=== PATIENT | female | born 1995 | race Caucasian/White ===

== ENCOUNTER 2017-01-21 10:41 | Emergency (ER) | payer BC, OTHER ==
[~2017-01-21] VITALS: Ht 157.5 cm; Wt 63.5 kg
[2017-01-21] MEDS ORDERED: IV NORMAL SALINE 1000 ML BAG IV ONE (11:15)
[2017-01-21] MEDS ORDERED: ESTR0.5T PO (11:21)
--- NOTE | 2017-01-21 11:28 | NUR ---
SALINE LOCK PLACED/ LABS DRAWN-SENT, 1L 0.9NS BOLUS INFUSING, EKG DONE. MONITOR SHOWS NSR, PT POSITIONED FOR COMFORT.
[2017-01-21 11:31] LABS: BASOPHILS % (AUTO) 0.7 % (0.0-2.0); EOSINOPHILS # (AUTO) 0.1 K/uL (0.0-0.7); EOSINOPHILS % (AUTO) 1.8 % (0.0-7.0); HEMATOCRIT 39.9 % (37-47); HEMOGLOBIN 13.3 G/DL (12.0-16.0); LYMPHOCYTES # (AUTO) 1.5 K/UL (0.8-4.8); LYMPHOCYTES % (AUTO) 26.7 % (20.5-74.5); MEAN CORPUSCULAR HEMOGLOBIN 29.1 UUG (27.0-31.0); MEAN CORPUSCULAR HGB CONC 33 g/dL (32.0-37.0); MONOCYTES # (AUTO) 0.5 K/UL (0.1-1.30); MONOCYTES % (AUTO) 8.1 % (0-11); NEUTROPHILS # (AUTO) 3.6 K/UL (1.8-8.9); NEUTROPHILS % (AUTO) 62.7 % (31.5-64.5); PLATELET COUNT (AUTO) 171 K/UL (150-450); RED BLOOD CELL COUNT(AUTO) 4.59 MIL/UL (4.2-5.4); WHITE BLOOD COUNT (AUTO) 5.7 K/UL (4.0-11.2)
[2017-01-21 11:35] LABS: CREATININE 0.9 mg/dL (0.6-1.3); POTASSIUM 3.6 mmol/L (3.5-5.1)
[2017-01-21 11:41] LABS: BILIRUBIN,DIRECT 0.1 mg/dL (0.0-0.2); BILIRUBIN,TOTAL 0.4 mg/dL (0.2-1.0); TOTAL PROTEIN, SERUM 7.8 g/dL (6.4-8.2)
--- NOTE | 2017-01-21 12:03 | NUR ---
MSE COMPLETED, SALINE LOCK D/C'D INTACT. 1L 0.9NS INFUSED. PT D/C'D HOME, ACI GIVEN. PT GOT DRESSED AND AMBULATED W/O DIFF.
[2017-01-21 12:07] VITALS: BP 120/83
== END 2017-01-21 12:08 | disposition home or self-care (01) ==
LOC: ER 10:41
DX: R55 Syncope and collapse (principal)
CPT/HCPCS: 36415; 80048; 80076; 84703; 85025; 93005; 96360; 99285; A4663; J7030

== ENCOUNTER 2018-04-20 18:24 | Emergency (ER) | payer BC, OTHER ==
[~2018-04-20] VITALS: Ht 157.5 cm; Wt 59.9 kg
[~2018-04-20 18:24] MED LIST: ESTR0.5T PO
[2018-04-20] MEDS ORDERED: IBUPROFEN 600 MG TABLET PO ONE (19:00)
[2018-04-20] MEDS ORDERED: IBUPROFEN 600 MG TABLET ONE (19:00)
[2018-04-20] MEDS ORDERED: ONDANSETRON ODT 4 MG TAB.RAPDIS ONE (19:00)
[2018-04-20] MEDS ORDERED: GUAIFENESIN/CODEINE 5 ML LIQUID UDC PO ONE (19:00)
[2018-04-20] MEDS ORDERED: GUAIFENESIN/CODEINE 5 ML LIQUID UDC ONE (19:00)
[2018-04-20] MEDS ORDERED: ONDANSETRON ODT 4 MG TAB.RAPDIS SL ONE (19:00)
[2018-04-20 19:10] VITALS: BP 119/81
--- NOTE | 2018-04-20 19:10 | NUR ---
Patient discharged to home in stable conditon. Written and verbal after care instructions given. Patient verbalizes understanding of instructions. Pt ambulated out of ER in steady gait accompanied by mother. All belongings with pt. VSS. NAD noted.
== END 2018-04-20 19:11 | disposition home or self-care (01) ==
LOC: ER 18:27
DX: J02.9 Acute pharyngitis, unspecified (principal); B97.89 Other viral agents as the cause of diseases classified elsewhere
CPT/HCPCS: 99284; A4663; Q0162